=== PATIENT | female | born 1990 | race Caucasian/White ===

== ENCOUNTER 2017-12-16 22:18 | Emergency (ER) | payer MEDICAID, OTHER ==
[2017-12-16 22:32] VITALS: O2SAT 97
[2017-12-16] MEDS ORDERED: Albuterol-Ipratrop 3 mg / 0.5 (3 ml) UD INH STA (22:43)
--- NOTE | 2017-12-16 23:42 | ED PDOC ---
HPI: Allergic Reaction Time Seen by Provider: 12/16/17 22:37 Chief Complaint (Nursing): Allergic Reaction Chief Complaint (Provider): Allergic Reaction History Per: Patient, EMS History/Exam Limitations: no limitations Onset/Duration Of Symptoms: Days (x since last week) Current Symptoms Are (Timing): Still Present Associated Symptoms: denies: Skin Rash, Other (throat closing) Additional History Per: EMS Additional Complaint(s): 26-year-old female presents to ED via EMS for allergic reaction. Patient reports last week she has been having increased chest tightness, coughing and itchy eyes. Acute symptoms worsen today. Pt reports in the last 3 days, she tried Claritin with no relief of symptoms. Reports has seasonal allergies. Also reports a cat has come to live with her family. Denies throat closing or rash. Reports congestion in her sinuses. PMD: Adalberto Sultana Past Medical History Reviewed: Historical Data, Nursing Documentation, Vital Signs Vital Signs: Last Vital Signs Temp 97.6 F 12/16/17 22:23 Pulse 114 H 12/16/17 22:32 Resp 22 12/16/17 22:23 BP 147/84 12/16/17 22:32 Pulse Ox 97 12/16/17 22:32 - Medical History PMH: Hyperthyroidism, Hypothyroidism Denies: HIV, Chronic Kidney Disease - Surgical History Surgical History: No Surg Hx - Family History Family History: States: Other Other Family History: Asthma - Home Medications Home Medications: Ambulatory Orders Medication Instructions Recorded Levothyroxine [Synthroid] 50 mcg PO DAILY 12/16/14 Naproxen Sodium [Aleve] 440 mg PO DAILY PRN 12/16/14 Ethinyl Estradiol/Norgestima 1 tab PO DAILY #0 tab 12/17/14 [Ortho Tri-Cyclen 35 Mcg-0.18 mg] Ferrous Sulfate 324 mg PO TID #0 ect 12/17/14 Albuterol HFA [Ventolin HFA 90 2 puff IH Q4H PRN #1 inh 12/17/17 mcg/actuation (8 g)] Prednisone 50 mg PO DAILY #4 tablet 12/17/17 - Allergies Allergies/Adverse Reactions: Allergies Allergy/AdvReac Type Severity Reaction Status Date / Time No Known Allergies Allergy Verified 12/16/14 14:12 Review of Systems ROS Statement: Except As Marked, All Systems Reviewed And Found Negative Eyes: Positive for: Other (Itchy eyes) Cardiovascular: Positive for: Other (Chest tightness) Respiratory: Positive for: Cough. Negative for: Other (throat closing) Skin: Negative for: Rash Physical Exam - Reviewed Nursing Documentation Reviewed: Yes Vital Signs Reviewed: Yes - Physical Exam Appears: Positive for: Uncomfortable, In Acute Distress Head Exam: Positive for: ATRAUMATIC, NORMOCEPHALIC Skin: Positive for: Warm, Dry Eye Exam: Positive for: Conjunctival injection (+ watery bilaterally) ENT: Positive for: Normal ENT Inspection, Pharynx Is (Clear). Negative for: Tonsillar Exudate, Tonsillar Swelling Neck: Positive for: Painless ROM, Trachea Midline Respiratory: Positive for: Wheezing (Diffuse expiratory wheeze with decreased air movements), Respiratory Distress. Negative for: Rales, Stridor Gastrointestinal/Abdominal: Positive for: Soft. Negative for: Tenderness Lymphatic: Negative for: Adenopathy Neurologic/Psych: Positive for: Alert. Negative for: Motor/Sensory Deficits - ECG O2 Sat by Pulse Oximetry: 97 - Progress ED Course And Treament: Time: 22:43 Impression(s): Reactive airway, Allergic reaction Plan: - Benadry 50 mg PO - Duoneb 3 mg/0.5 mg (3 ml) UD - SOLU-Medrol 125 mg IM - Peak Flow Pre/Post Treatment [id number] Upon provider evaluation patient is medically stable, and requires no further treatment in the ED at this time. Patient will be discharged with Rx for Ventoin HFA and Prednisone. Counseling was provided and all questions were answered regarding diagnosis. There is agreement to discharge plan. Return if symptoms persist or worsen. Scribe Attestation: Documented by Camden Pearl, acting as a scribe for Hattie Coto MD. Provider Scribe Attestation: All medical record entries made by the Scribe were at my direction and personally dictated by me. I have reviewed the chart and agree that the record accurately reflects my personal performance of the history, physical exam, medical decision making, and the department course for this patient. I have also personally directed, reviewed, and agree with the discharge instructions and disposition. Disposition - Clinical Impression Clinical Impression: Hay fever, Reactive airway disease - Patient ED Disposition Is Patient to be Admitted: No - Disposition Referrals: [facility] [Outside] Disposition: Routine/Home Disposition Time: 00:04 Condition: IMPROVED Prescriptions: Albuterol HFA [Ventolin HFA 90 mcg/actuation (8 g)] 2 puff IH Q4H PRN #1 inh PRN Reason: ASTHMA Prednisone 50 mg PO DAILY #4 tablet Instructions: Seasonal Allergies in Adults, Asthma, Adult (DC) Forms: [facility] ED School/Work Excuse
[2017-12-17 00:29] VITALS: BP 136/102; PULSE 113; RESP 18; TEMP 98.3
== END 2017-12-17 00:30 | disposition home or self-care (01) ==
LOC: H.ER 22:18
DX: J30.1 Allergic rhinitis due to pollen (principal); J45.909 Unspecified asthma, uncomplicated; E03.9 Hypothyroidism, unspecified; E05.90 Thyrotoxicosis, unspecified without thyrotoxic crisis or storm; T78.40XA Allergy, unspecified, initial encounter
CPT/HCPCS: 94150; 94640; 96372; 99285; J2930